=== PATIENT | male | born 1990 | race Caucasian/White ===

== ENCOUNTER 2017-08-29 17:28 | Emergency (ER) | payer OTHER ==
[~2017-08-29] VITALS: Ht 177.8 cm; Wt 112.0 kg
[2017-08-29 18:40] LABS: HEMATOCRIT 44.1 % (38.0-50.0); HEMOGLOBIN 14.7 G/DL (12.5-16.6); MCH 28.9 PG (29.0-34.0); MCHC 33.3 G/DL (30.0-36.0); MCV 86.6 FL (86-99); PLATELET COUNT 244 K/uL (156-360); RBC DIS.WIDTH-CV 14.5 % (11.8-14.6); RBC DIS.WIDTH-SD 45.8 % (39-53); RED BLOOD COUNT 5.09 M/uL (4.00-5.50); WHITE BLOOD COUNT 10.7 K/uL (4.1-10.2)
[2017-08-29 18:47] LABS: D-DIMER ELISA < 150.00 ng/mLDDU (<230)
[2017-08-29 18:55] LABS: CHLORIDE 101 mEq/L (99-109); POTASSIUM 3.9 mEq/L (3.7-5.4); SODIUM 140 mEq/L (136-147)
[2017-08-29 18:56] LABS: GLUCOSE 94 mg/dL (70-99)
[2017-08-29 19:00] LABS: CREATININE 0.8 mg/dL (0.6-1.3); GFR ESTIMATE (CALCULATED) > 59 mL/min/ (58.99-99999)
[2017-08-29 19:01] LABS: UREA NITROGEN (BUN) 10 mg/dL (9-23)
[2017-08-29 20:06] VITALS: BP 140/84
== END 2017-08-29 20:06 | disposition home or self-care (01) ==
LOC: EME 17:28
PROVIDERS: Emergency Medicine
DX: R60.0 Localized edema (principal); Z91.040 Latex allergy status
CPT/HCPCS: 80048; 85027; 85379; 99281; 99284